=== PATIENT | female | born 1990 | race Two or more races ===

== ENCOUNTER 2024-11-09 21:15 | Emergency (ER) | payer MEDICAID ==
[~2024-11-09] VITALS: Ht 165.1 cm; Wt 81.6 kg
[2024-11-09 22:09] LABS: BASOPHILS % (AUTO) 0.3 % (0.0-2.0); EOSINOPHILS # (AUTO) 0.3 K/uL (0.0-0.7); EOSINOPHILS % (AUTO) 4.1 % (0.0-7.0); HEMATOCRIT 34.1 % (31.2-41.9); HEMOGLOBIN 11.1 g/dL (10.9-14.3); LYMPHOCYTES # (AUTO) 1.1 K/uL (0.8-4.8); LYMPHOCYTES % (AUTO) 14.9 % (20.5-51.5); MEAN CORPUSCULAR HEMOGLOBIN 25.2 uug (24.7-32.8); MEAN CORPUSCULAR HGB CONC 33 g/dL (32.3-35.6); MEAN CORPUSCULAR VOLUME 76.9 fL (75.5-95.3); MONOCYTES # (AUTO) 0.5 K/uL (0.1-1.30); MONOCYTES % (AUTO) 6.3 % (0.0-11.0); NEUTROPHILS # (AUTO) 5.4 K/uL (1.8-8.9); NEUTROPHILS % (AUTO) 74.4 % (38.5-71.5); PLATELET COUNT (AUTO) 286 K/uL (179-408); RED BLOOD CELL COUNT(AUTO) 4.43 MIL/uL (3.63-4.92); RED CELL DISTRIBUTION WIDTH 17.6 % (12.3-17.7); WHITE BLOOD COUNT (AUTO) 7.2 K/uL (3.8-11.8)
[2024-11-09 22:10] LABS: DIFFERENTIAL COMMENT 1
[2024-11-09 22:20] LABS: ETHANOL < 3 MG/DL (0-10)
[2024-11-09 22:24] LABS: ALANINE AMINOTRANSFERASE 55 U/L (14-59); ALBUMIN 3.8 g/dL (3.4-5.0); ALKALINE PHOSPHATASE 91 U/L (50-136); ASPARTATE AMINOTRANSFERASE 54 U/L (15-37); BILIRUBIN,DIRECT 0.2 mg/dL (0.0-0.2); BILIRUBIN,TOTAL 0.6 mg/dL (0.2-1.0); CALCIUM 8.5 mg/dL (8.5-10.1); CARBON DIOXIDE 22 mmol/L (21-32); CHLORIDE 103 mmol/L (98-107); CREATININE 0.7 mg/dL (0.6-1.3); GLUCOSE 105 mg/dL (74-106); SODIUM SERUM 140 mmol/L (136-145); TOTAL PROTEIN, SERUM 6.9 g/dL (6.4-8.2); UREA NITROGEN, BLOOD 11 mg/dL (7-18)
[2024-11-09 22:27] LABS: POTASSIUM 2.7 mmol/L (3.5-5.1)
[2024-11-09 22:41] LABS: ACETAMINOPHEN < 10.0 ug/mL (10-30)
[2024-11-09] MEDS ORDERED: POTASSIUM CHLORIDE 50 ML ONE ×2 (22:44→23:47)
[2024-11-09] MEDS ORDERED: POTASSIUM CHLORIDE 20 MEQ POWDER PACKET ONE (22:45)
[2024-11-09 22:50] LABS: *BILIRUBIN,URIN 1+ (NEGATIVE); *CLARITY,URINE CLEAR (CLEAR); *COLOR,URINE YELLOW (YELLOW); *KETONES,URINE 2+ (NEGATIVE); *PROTEIN,URINE 2+ (NEGATIVE); *UROBILINOGEN,URINE 0.2 E.U./dl (NORMAL); LEUKOCYTE ESTERASE ,URINE TRACE (NEGATIVE); NITRITE, URINE NEGATIVE (NEGATIVE); UGLUCOSE NEGATIVE (NEGATIVE)
[2024-11-09 22:51] LABS: *URINE HCG, QUAL NEGATIVE (NEGATIVE)
[2024-11-09 22:52] LABS: *BLOOD, URINE TRACE (NEGATIVE)
[2024-11-09] MEDS: POTASSIUM CHLORIDE 50 ML IV SCH (22:52)
[2024-11-09] MEDS: POTASSIUM CHLORIDE 20 MEQ POWDER PACKET PO ONE (22:52)
[2024-11-09 22:58] LABS: *AMPHETAMINE, URINE POSITIVE (NEGATIVE); *BARBITURATE, URINE NEGATIVE (NEGATIVE); *BENZODIAZEPINE, URINE NEGATIVE (NEGATIVE); *CANNABINOID, URINE NEGATIVE (NEGATIVE); *COCCAINE, URINE NEGATIVE (NEGATIVE); *OPIATE, URINE NEGATIVE (NEGATIVE); *PHENCYCLIDINE SCREEN,URINE NEGATIVE (NEGATIVE); FENTANYL, URINE POSITIVE (NEGATIVE)
[2024-11-09 23:06] LABS: BACTERIA,URINE FEW /HPF (NONE SEEN); MUCUS,URINE MODERATE /LPF (0-FEW); RBC,URINE 0-3 /HPF (0-3); SQUAMOUS EPITHELIAL CELL,UR FEW /HPF (NONE SEEN); WBC,URINE 0-3 /HPF (0-3)
[2024-11-10] MEDS ORDERED: POTASSIUM CHLORIDE 0 ML ONE (00:49)
[2024-11-10] MEDS ORDERED: POTASSIUM CHLORIDE 50 ML IV SCH (01:00)
[2024-11-10 02:28] VITALS: BP 112/59; O2SAT 99
[2024-11-10] MEDS ORDERED: AZIT250T13 PO (04:00)
[2024-11-10] MEDS ORDERED: AMOX-430 PO (04:00)
== END 2024-11-10 02:22 | disposition home or self-care (01) ==
LOC: EDBD 21:20 → ER 21:20
DX: S00.83XA Contusion of other part of head, initial encounter (principal); T40.601A Poisoning by unspecified narcotics, accidental (unintentional), initial encounter; R41.82 Altered mental status, unspecified; R09.02 Hypoxemia; E87.6 Hypokalemia; F19.10 Other psychoactive substance abuse, uncomplicated; J18.9 Pneumonia, unspecified organism; Y92.89 Other specified places as the place of occurrence of the external cause
CPT/HCPCS: 80076; 80048; 81001; 84703; 83735; 85025; 36415 ×2; 71045; 99284; 83605; 80299; 80320; 80307; 84132; J3480 ×2; A4606; A4663; G0480